=== PATIENT | male | born 1985 | race Caucasian/White ===

== ENCOUNTER 2023-06-12 13:44 | Outpatient (CLI) | payer MEDICAID, SELFPAY | END 2023-06-12 13:45 | disposition home or self-care (01) | PROVIDERS: PCP Family Medicine; Visit Provider Family Medicine | DX: R53.83 Other fatigue (principal) | CPT/HCPCS: 82947; 84443; 86618 ==

== ENCOUNTER 2023-06-20 10:20 | Outpatient (CLI) | payer MEDICAID, SELFPAY | END 2023-06-20 10:21 | disposition home or self-care (01) | PROVIDERS: PCP Family Medicine; Visit Provider Family Medicine | DX: R53.83 Other fatigue (principal); D72.829 Elevated white blood cell count, unspecified | CPT/HCPCS: 80053; 84270; 84402; 84403 ==

== ENCOUNTER 2023-08-01 08:16 | Outpatient (CLI) | payer MEDICAID, SELFPAY | END 2023-08-01 08:17 | disposition home or self-care (01) | PROVIDERS: PCP Family Medicine; Visit Provider Family Medicine | DX: Z00.00 Encounter for general adult medical examination without abnormal findings (principal); R53.83 Other fatigue; D72.829 Elevated white blood cell count, unspecified | CPT/HCPCS: 80061; 80076 ==